=== PATIENT | female | born 1955 | race Caucasian/White ===

== ENCOUNTER 2019-10-23 21:41 | Emergency (ER) | payer BC ==
[2019-10-23 21:58] VITALS: BP 139/70; PULSE 71
--- NOTE | 2019-10-23 22:39 | EDM.PDOC ---
ED HPI GENERAL MEDICAL PROBLEM - General Chief Complaint: Abdominal Pain Stated Complaint: STOMACH PAIN Time Seen by Provider: 10/23/19 22:15 Source of Information: Reports: Patient, RN, RN Notes Reviewed History Limitations: Reports: No Limitations - History of Present Illness INITIAL COMMENTS - FREE TEXT/NARRATIVE: Franca is a 63 yo that presents to the ED with two episodes of upper abd pain this evening. She states the past two days she has had intermittent burning across the upper abd that felt like she was really hungry and had not eaten. This evening, Franca felt fine, ate a pesto chicken and garbanzo pond salad supper with her around 17:30. At 20:00, Franca got 8/10 severe upper abd pain that she described as sharp. she tried to lay down without relief. Tried 2 tabs of Tums and then took a shower and the pain ended ended up going away after about 45 minutes. After 10 minutes, the pain came back more severe 10/10 and lasted another 10 minutes. She arrives at the ED pain free. Abd history of an appy and R ovary removed due to a significant cyst. Negative colonoscopy 10 years ago per the pt and a negative cologuard earlier this year. denies any history of acid reflux, ulcers, or diverticulosis. Franca says a previous abd CT scan did show gallstones. 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 (see below) (2 tums) - Related Data Allergies Allergy/AdvReac Type Severity Reaction Status Date / Time erythromycin base Allergy Rash Verified 10/23/19 22:19 [Erythromycin Base] codeine AdvReac Nausea and Verified 10/23/19 22:19 Vomiting Home Meds: Home Meds Benazepril [Lotensin] 20 mg PO DAILY 03/13/13 [History] Meclizine [Antivert] 12.5 mg PO TID PRN 03/13/13 [History] [place]-3 Fatty Acids/Fish Oil [[place]-3 Fish Oil 1,000 mg Sfgl] 1 tab PO DAILY [History] Gabapentin [Neurontin] 600 mg PO DAILY 03/15/17 [History] Levothyroxine [Synthroid] 50 mcg PO DAILY 05/08/19 [History] Past Medical History Cardiovascular History: Reports: Hypertension Respiratory History: Reports: None Gastrointestinal History: Reports: None Genitourinary History: Reports: None 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 right knee pain Neurological History: Reports: None Psychiatric History: Reports: None Endocrine/Metabolic History: Reports: None Hematologic History: Reports: None Immunologic History: Reports: None Oncologic (Cancer) History: Reports: None Dermatologic History: Reports: None - Infectious Disease History Infectious Disease History: Reports: Chicken Pox - Past Surgical History Head Surgeries/Procedures: Reports: None Cardiovascular Surgical History: Reports: None GI Surgical History: Reports: Appendectomy Musculoskeletal Surgical History: Reports: None Social & Family History - Tobacco Use Smoking Status *Q: Never Smoker - Caffeine Use Caffeine Use: Reports: Coffee - Alcohol Use Days Per Week of Alcohol Use: 7 Number of Drinks Per Day: 1 Total Drinks Per Week: 7 - Recreational Drug Use Recreational Drug Use: No ED ROS GENERAL - Review of Systems Review Of Systems: See Below Constitutional: Reports: No Symptoms HEENT: Reports: No Symptoms Respiratory: Reports: No Symptoms Cardiovascular: Reports: No Symptoms Endocrine: Reports: No Symptoms GI/Abdominal: Reports: Abdominal Pain : Reports: No Symptoms Musculoskeletal: Reports: No Symptoms Skin: Reports: No Symptoms Neurological: Reports: No Symptoms Psychiatric: Reports: No Symptoms Hematologic/Lymphatic: Reports: No Symptoms Immunologic: Reports: No Symptoms ED EXAM, GI/ABD - Physical Exam Exam: See Below Exam Limited By: No Limitations General Appearance: Alert, WD/WN, No Apparent Distress Ears: Normal External Exam Head: Atraumatic, Normocephalic Respiratory/Chest: No Respiratory Distress, Lungs Clear, Normal Breath Sounds, Chest Non-Tender Cardiovascular: Regular Rate, Rhythm, No Edema, No Murmur GI/Abdominal Exam: Normal Bowel Sounds, Soft, Non-Tender, No Organomegaly, No Distention, No Abnormal Bruit (Female) Exam: Deferred Rectal (Female) Exam: Deferred Back Exam: Normal Inspection Extremities: Normal Inspection, No Pedal Edema, Normal Capillary Refill Neurological: Alert, Oriented, Normal Cognition Psychiatric: Normal Affect, Normal Mood Skin Exam: Warm, Dry Course - Vital Signs Last Recorded V/S: Last Vital Signs Temp 98.7 F 10/23/19 22:20 Pulse 71 10/23/19 22:20 Resp 18 10/23/19 22:20 BP 139/70 10/23/19 22:20 Pulse Ox 99 10/23/19 22:20 - Orders/Labs/Meds Orders: Active Orders 24 hr Category Date Time Status EKG Documentation Completion [RC] ASDIRECTED Care 10/23/19 22:32 Active Abdomen Series w Chest 1V [CR] Stat Exams 10/23/19 22:29 Taken EKG 12 Lead [EK] Routine Ther 10/23/19 22:31 Ordered Labs: Laboratory Tests 10/23/19 10/23/19 10/23/19 Range/Units 22:28 22:45 22:45 WBC 7.1 (4.5-11.0) K/uL RBC 3.72 (3.30-5.50) M/uL Hgb 11.3 L (12.0-15.0) g/dL Hct 35.8 L (36.0-48.0) % MCV 96 (80-98) fL MCH 30 (27-31) pg MCHC 32 (32-36) % Plt Count 256 (150-400) K/uL Neut % (Auto) 62 (36-66) % Lymph % (Auto) 28 (24-44) % Ashley % (Auto) 8 H (2-6) % Eos % (Auto) 2 (2-4) % Baso % (Auto) 0 (0-1) % Sodium 143 (140-148) mmol/L Potassium 4.1 (3.6-5.2) mmol/L Chloride 106 (100-108) mmol/L Carbon Dioxide 30 (21-32) mmol/L Anion Gap 6.6 (5.0-14.0) mmol/L BUN 11 (7-18) mg/dL Creatinine 0.7 (0.6-1.0) mg/dL Est Cr Clr Drug Dosing 79.99 mL/min Estimated GFR (MDRD) > 60 (>60) Glucose 120 H (74-106) mg/dL Calcium 9.4 (8.5-10.1) mg/dL Total Bilirubin 0.2 (0.2-1.0) mg/dL AST 51 H (15-37) U/L ALT 48 (12-78) U/L Alkaline Phosphatase 71 (46-116) U/L Total Protein 7.1 (6.4-8.2) g/dL Albumin 4.0 (3.4-5.0) g/dL Globulin 3.1 (2.3-3.5) g/dL Albumin/Globulin Ratio 1.3 (1.2-2.2) Lipase 172 (73-393) U/L Urine Color Yellow (YELLOW) Urine Appearance Clear (CLEAR) Urine pH 7.0 (5.0-8.0) Ur Specific [place] >= 1.030 (1.008-1.030) Urine Protein Negative (NEGATIVE) mg/dL Urine Glucose (UA) Negative (NEGATIVE) mg/dL Urine Ketones Negative (NEGATIVE) mg/dL Urine Occult Blood Negative (NEGATIVE) Urine Nitrite Negative (NEGATIVE) Urine Bilirubin Negative (NEGATIVE) Urine Urobilinogen 0.2 (0.2-1.0) EU/dL Ur Leukocyte Esterase Trace H (NEGATIVE) Urine RBC 0-5 (0-5) Urine WBC 0-5 (0-5) Ur Epithelial Cells Few Amorphous Sediment Few Urine Bacteria Not seen Urine Mucus Not seen - Re-Assessments/Exams Free Text/Narrative Re-Assessment/Exam: 10/23/19 23:08 EKG shows NSR and is reassuring. UA negative. Chest xray is WNL and abdominal flat/upright show no free air under the diaphragm and a moderate amount of stool. Official radiology read pending. Departure - Departure Time of Disposition: 23:40 Disposition: Home, Self-Care 01 Condition: Good Clinical Impression: Gallbladder attack - Discharge Information *PRESCRIPTION DRUG MONITORING PROGRAM REVIEWED*: No *COPY OF PRESCRIPTION DRUG MONITORING REPORT IN PATIENT ALEYDA: No Referrals: Benedicto Curran MD [Primary Care Provider] - Forms: ED Department Discharge Care Plan Goals: Suspect that you have experienced a gallbladder attack/ spasm. An outpatient order has been placed for you to return for an ultrasound of your gallbladder on Sunday. Radiology should call you tomorrow to set that up. In the meantime, eat a bland, low-fat diet. If that pain returns and remains severe, return to the ED for further evaluation. Call or return with worsening or any other conditions. Follow-up with Dr. Curran on Sunday. [facility] call you to set that up. Sepsis Event Note - Evaluation Sepsis Screening Result: No Definite Risk - Focused Exam Vital Signs: Vital Signs Temp Pulse Resp BP Pulse Ox 10/23/19 22:20 98.7 F 71 18 139/70 99 10/23/19 21:57 98.7 F 71 18 139/70 99 Date Exam was Performed: 10/23/19 Time Exam was Performed: 23:38 - My Orders Last 24 Hours: My Active Orders 10/23/19 22:29 Abdomen Series w Chest 1V [CR] Stat 10/23/19 22:31 EKG 12 Lead [EK] Routine 10/23/19 22:32 EKG Documentation Completion [RC] ASDIRECTED - Assessment/Plan Last 24 Hours: My Active Orders 10/23/19 22:29 Abdomen Series w Chest 1V [CR] Stat 10/23/19 22:31 EKG 12 Lead [EK] Routine 10/23/19 22:32 EKG Documentation Completion [RC] ASDIRECTED Plan: labs are reassuring. AST slightly elevated at 51. suspect a gallbladder spasm/ colic. Plan to discharge home with the plan to come back Sunday for a gallbladder ultrasound and then follow up with Dr. Curran on Sunday.
--- NOTE | 2019-10-24 09:08 | CR ---
Abdomen Series w Chest 1V CLINICAL HISTORY: Abdominal pain FINDINGS: Lungs are clear. No free air is identified. Small intestinal gas pattern is nonacute. 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 There is a transitional lumbosacral segment IMPRESSION: Nonacute intestinal gas pattern
== END 2019-10-23 23:54 | disposition home or self-care (01) ==
LOC: JP.ED 21:41
DX: K82.9 Disease of gallbladder, unspecified (principal); I10 Essential (primary) hypertension; Z79.899 Other long term (current) drug therapy; Z88.1 Allergy status to other antibiotic agents; Z88.5 Allergy status to narcotic agent
CPT/HCPCS: 36415; 74022; 74022-26; 80053; 81001; 83690; 85025; 93005; 99284-25

== ENCOUNTER 2019-11-04 05:30 | Day surgery (SDC) | payer BC ==
[2019-11-04] MEDS: Dextrose 5%-Lactated Ringers 1,000 ML IV SCH ×3 (05:54→22:10)
[2019-11-04] MEDS ORDERED: Celecoxib 200 MG Cap PO ONE (06:00)
[2019-11-04] MEDS ORDERED: Acetaminophen 500 MG Tab PO ONE (06:00)
[2019-11-04] MEDS ORDERED: Scopolamine 1.5 MG Transdermal Patch TOP SCH (06:00)
[2019-11-04] MEDS ORDERED: Bupivacaine 0.5%/EPINEPHrine 1:200,000 50 ML MDV ONE (06:32)
[2019-11-04] MEDS ORDERED: Meropenem 500 MG SDV ONE (06:32)
[2019-11-04] MEDS ORDERED: fentaNYL 250 MCG/5 ML SDV ONE (07:08)
[2019-11-04] MEDS ORDERED: Succinylcholine 200 MG/10 ML MDV ONE (07:09)
[2019-11-04] MEDS ORDERED: Neostigmine Methylsulfate 1 MG/ML 5 ML Syringe ONE (07:09)
[2019-11-04] MEDS ORDERED: Ondansetron 4 MG/2 ML SDV ONE (07:09)
[2019-11-04] MEDS ORDERED: Dexamethasone 4 MG/ML SDV ONE (07:09)
[2019-11-04] MEDS ORDERED: Glycopyrrolate 0.2 MG/ML 5 ML MDV ONE (07:09)
[2019-11-04] MEDS ORDERED: Rocuronium 50 MG/5 ML Vial ONE (07:09)
[2019-11-04] MEDS ORDERED: Propofol 200 MG/20 ML SDV ONE (07:09)
[2019-11-04] MEDS: cefOXitin 2 GM in Sodium Chloride 0.9% 50 ML IV ONE ×2 (07:13→09:09)
[2019-11-04] MEDS ORDERED: Ropivacaine 44 ML, dexAMETHasone 8 MG, EPINEPHrine 0.4 MG, Sodium Chloride 0.9% 33.6 ML NERVRT SCH ×4 (07:30)
[2019-11-04] MEDS ORDERED: Ketamine 500 MG/5 ML MDV IV SCH (07:30)
[2019-11-04] MEDS ORDERED: Sodium Chloride 0.9% 10 ML ONE (07:43)
[2019-11-04] MEDS ORDERED: ePHEDrine 50 MG/ML SDV ONE (07:43)
[2019-11-04] MEDS ORDERED: Acetaminophen/HYDROcodone 325-5 MG Tab PO PRN (09:12)
[2019-11-04] MEDS ORDERED: Ondansetron 4 MG/2 ML SDV IVPUSH PRN (09:12)
[2019-11-04] MEDS ORDERED: HYDROmorphone 0.5 MG/0.5 ML Syringe IVPUSH PRN (09:12)
[2019-11-04] MEDS ORDERED: HYDROmorphone 1 MG/ML Syringe IV PRN (09:12)
[2019-11-04] MEDS ORDERED: Loratadine 10 MG Tab PO PRN (09:16)
[2019-11-04] MEDS ORDERED: Pantoprazole 40 MG Vial IVPUSH SCH (11:00)
[2019-11-04] MEDS: predniSONE 20 MG Tab PO SCH (11:45)
[2019-11-04] MEDS: Levothyroxine 50 MCG Tab PO SCH (11:46)
[2019-11-04] MEDS: Benazepril 10 MG Tab PO SCH (12:58)
[2019-11-04] MEDS: cefOXitin 2 GM in Sodium Chloride 0.9% 50 ML IV SCH ×2 (14:35→19:51)
[2019-11-04] MEDS ORDERED: Gabapentin 300 MG Cap PO SCH (21:00)
[2019-11-04] MEDS ORDERED: HYDROmorphone 2 MG Tab PO PRN (22:20)
[2019-11-05] MEDS: cefOXitin 2 GM in Sodium Chloride 0.9% 50 ML IV SCH ×2 (01:43→07:30)
[2019-11-05] MEDS: Levothyroxine 50 MCG Tab PO SCH (07:30)
[2019-11-05] MEDS: predniSONE 20 MG Tab PO SCH (08:00)
[2019-11-05] MEDS: Benazepril 10 MG Tab PO SCH (08:52)
[2019-11-05 11:07] VITALS: BP 107/48; PULSE 52
--- NOTE | 2019-11-05 17:13 | OR ---
DATE OF PROCEDURE: 11/04/2019 SURGEON: Basilio Wallace MD PREOPERATIVE DIAGNOSES: Chronic cholecystitis and cholelithiasis. POSTOPERATIVE DIAGNOSES: 1. Chronic cholecystitis and cholelithiasis. 2. Enlarged radha hepatis lymph node. 3. Probable lipoma over peritoneal surface of gallbladder (1 cm). 4. Incarcerated umbilical hernia. OPERATIVE PROCEDURES: Diagnostic laparoscopy with, 1. Cholecystectomy (27875). 2. Repair of incarcerated umbilical hernia (68620). 3. Biopsy of radha hepatis lymph node (90097). 4. Excision of probable lipoma on peritoneal surface adjacent to gallbladder (00775). ANESTHESIA: General. AUTOMOTIVE PRODUCT ENGINEER: Suzy Montes PA-C INDICATION FOR PROCEDURE: This 64-year-old is presenting with some ongoing right upper quadrant pain. Workup included ultrasound showing gallbladder thickening and gallstones. Plan is to proceed with a laparoscopic cholecystectomy. Potential risks of the procedure including bleeding, infection, injury to underlying viscera, problems with stones migrating into the common bile duct requiring additional procedures for correction were all reviewed, and the patient wishes to proceed. DETAILS OF PROCEDURE: The patient was taken to the operating room and placed in a supine position. After general endotracheal anesthesia was induced, initially, the patient was noted to have a fairly large umbilical hernia. A transverse subumbilical incision was made and carried down through the skin and subcutaneous tissue, and the hernia contents were then excised. This included some incarcerated preperitoneal fat as well as a tongue of omentum. This was excised along with the hernia sac. Then, a 12-mm trocar was easily placed into the peritoneal cavity, which was then inflated to 15 mmHg with CO2. A 12-mm epigastric trocar followed by a 5-mm right subcostal trocar were both then placed, and the upper abdomen examined. As expected, the patient was noted to have a thick-walled and somewhat edematous- appearing gallbladder. Of note then, the patient was noted to have a lipomatous-type region on the edge of the gallbladder neck. This measured around 1 cm and for pathologic confirmation, it was excised and sent as a separate specimen. The patient also had an enlarged radha hepatis lymph node, which would probably be reactive, but to confirm its benign nature, this was excised as well, again, using Harmonic scalpel. The gallbladder was then retracted anteriorly and laterally, and dissection began on the gallbladder neck and continued around the gallbladder neck and cystic duct junction. Once that area along with the adjacent cystic artery were both clearly identified, in each case 3 clips were placed proximally and once distally, and the gallbladder neck and cystic duct junction divided. The gallbladder was then dissected off the gallbladder bed using Harmonic scalpel and delivered through the upper midline port. The patient was noted to have 2 stones, one was roughly a 1-cm stone which was lodged in the gallbladder neck and a second larger free-floating stone was somewhat larger. The latter was given to the patient postoperatively. At this point, no bleeding or bile leaks were seen and a drain was felt not to be necessary. Skin was then brought up to the epigastric site and a series of 4 sutures were then placed closing the umbilical hernia with a transverse orientation. Once all these sutures were in place, the remaining trocars were removed and peritoneal cavity deflated. The fascial sutures were then tied. The epigastric trocar site also had a single fascial suture of 0 Vicryl placed as well. The subdermal tissue at the umbilical site was tacked down with some 5-0 Vicryl stitch and each incision closed with 5-0 Vicryl skin stitch. Dressing was applied. The patient was taken to the recovery room in satisfactory condition. There were no evident complications. Physician assistant boys track coach, Suzy Montes, played an essential role assisting in this case; helping to position the patient, retract structures as needed, as well as suturing and cutting sutures when indicated. Her presence improved patient safety and decreased the operative time. Basilio Wallace MD /[id number]
--- NOTE | 2019-11-06 07:21 | DISCH ---
ADMISSION DIAGNOSIS: Chronic cholecystitis. DISCHARGE DIAGNOSES: Diagnostic laparoscopy with: 1. Cholecystectomy. 2. Repair of incarcerated umbilical hernia. 3. Biopsy of the radha hepatic lymph node. 4. Excision of probable lipoma on the peritoneal surface of the gallbladder. POSTOPERATIVE DIAGNOSES: 1. Chronic cholecystitis and cholelithiasis. 2. Enlarged radha hepatic lymph node. 3. Probable lipoma on the peritoneal surface of the gallbladder, 1 cm. 4. Incarcerated umbilical hernia. Date of surgery: 11/04/2019. Surgeon: Basilio Wallace MD. HISTORY: Franca Covarrubias is a 64-year-old female with chronic cholecystitis. After preoperative evaluation and discussion of possible risks and possible complications she wished to proceed with surgical procedure. HOSPITAL COURSE: Franac had her surgery on 11/04/2019. She had no operative complications. On postoperative day #1, her pain was well controlled. Oral intake adequate. Vital signs stable. Activity good. She was able to be discharged to home. PHYSICAL EXAMINATION: GENERAL: Franca is a 64-year-old female. VITAL SIGNS: Height is 5 feet 7 inches, weight is 192 pounds, BMI is 30. TPR at 0500; 97.1, 64, 18. Blood pressure 102/45. HEENT: Negative. NECK: Supple. HEART: Regular rate and rhythm. LUNGS: Clear. ABDOMEN: Dressings dry and intact. Abdominal binder is on. EXTREMITIES: Without peripheral edema. DISPOSITION: Discharged home. CONDITION: Stable and improving. FOLLOWUP APPOINTMENT: With Basilio Wallcae MD, at [facility] on 11/12/2019 at 8:30 a.m. DISCHARGE MEDICATIONS: New prescriptions: 1. Dilaudid 2 mg every 4 hours p.r.n. pain, #30. 2. Zofran ODT 4 mg every 6 hours p.r.n. nausea, #30. 3. Remove scopolamine patch on Sunday morning 11/08/2019. Resume home medications: 1. Lotensin 20 mg oral daily. 2. [place] 180 mg oral daily. 3. Neurontin 600 mg at bedtime. 4. Levothyroxine 50 mcg oral daily. 5. Meclizine 12.5 mg oral 3 times a day p.r.n. nausea. 6. [place]-3 one tablet oral daily. 7. Prednisone 40 mg, take for 5 days, and she has 2 days left, may finish if she feels like she still needs it. DIET: Usual diet as tolerated. Drink 8 to 10 glasses of water a day. ACTIVITY: No lifting over 10 pounds for 4 weeks. Other activity: Walk 6 times daily inside your home and driving do not drive for 1 week and while on pain medication. Shower/Bathing: May shower. No tub bathing or swimming until incisions are completely dry and healed, about 6 weeks. DISCHARGE INSTRUCTIONS: Notify provider if any fever, increased pain, swelling, redness, drainage, nausea, or vomiting. Keep site clean and dry. Wear abdominal binder for 2 weeks and then as tolerated. Use incentive spirometer 10 times every hour while awake for 1 week.
== END 2019-11-05 11:11 | disposition home or self-care (01) ==
LOC: JP.SDS 05:30 → JP.MS 08:20 → JP.SDS 11-05 11:11
PROVIDERS: ATTEND Surgery
DX: K80.10 Calculus of gallbladder with chronic cholecystitis without obstruction (principal); K42.0 Umbilical hernia with obstruction, without gangrene; D17.5 Benign lipomatous neoplasm of intra-abdominal organs; R59.0 Localized enlarged lymph nodes; I10 Essential (primary) hypertension; E66.9 Obesity, unspecified; Z68.30 Body mass index [BMI] 30.0-30.9, adult; Z88.5 Allergy status to narcotic agent; Z88.1 Allergy status to other antibiotic agents; Z79.899 Other long term (current) drug therapy
CPT/HCPCS: 36415; 47562; 49321; 49329; 49653; 82247; 84075; 85027; 88302; 88304; 88305; A9270; C9113; J0171; J0330; J0694; J1100; J1170; J2405; J2704; J2710; J2795; J3010; J3490; J7050; J7121; J7512; J2185

== ENCOUNTER 2020-11-02 11:51 | Emergency (ER) | payer BC, MEDICARE ==
[2020-11-02 12:40] VITALS: BP 136/52; PULSE 72
--- NOTE | 2020-11-02 14:10 | EDM.PDOC ---
ED HPI GENERAL MEDICAL PROBLEM - General Chief Complaint: Genitourinary Problem Stated Complaint: TROUBLE URINATING IN THE MORNING Time Seen by Provider: 11/02/20 13:42 Source of Information: Reports: Patient, RN Notes Reviewed History Limitations: Reports: No Limitations - History of Present Illness INITIAL COMMENTS - FREE TEXT/NARRATIVE: 65-year-old female presents emergency department day complaint of urinary retention, she states been going on for about a month mainly in the morning she has difficulty urinating initially started out 15 minutes now has progressed to several hours before she can believe herself in the morning. Presented to the emergency department for further evaluation she has seen her primary consultation with urology set up but that is a month out. Denies any other symptoms - Related Data Allergies Allergy/AdvReac Type Severity Reaction Status Date / Time erythromycin base Allergy Rash Verified 11/02/20 12:34 [Erythromycin Base] codeine AdvReac Nausea and Verified 11/02/20 12:34 Vomiting Home Meds: Home Meds Benazepril [Lotensin] 20 mg PO DAILY 03/13/13 [History] Meclizine [Antivert] 12.5 mg PO TID PRN 03/13/13 [History] Bantam-3 Fatty Acids/Fish Oil [Bantam-3 Fish Oil 1,000 mg Sfgl] 1 tab PO BEDTIME 03/14/17 [History] Gabapentin [Neurontin] 600 mg PO BEDTIME 03/15/17 [History] Levothyroxine [Synthroid] 50 mcg PO DAILY 05/08/19 [History] Fexofenadine [Eden] 180 mg PO DAILY PRN 10/31/19 [History] Triamcinolone Acetonide [Triamcinolone Acetonide 0.1% Oint] 1 dose TOP BID 10/31/19 [History] HYDROmorphone [Dilaudid] 2 mg PO Q4H PRN #30 tablet 11/05/19 [Rx] Past Medical History Cardiovascular History: Reports: Hypertension ACCOUNT SUPPORT ASSOCIATE History: Reports: Other (See Below) Other ACCOUNT SUPPORT ASSOCIATE History: ovary removed Musculoskeletal History: Reports: Back Pain, Chronic, Other (See Below) Other Musculoskeletal History: R elbow pain. right knee pain bunionectomy - Infectious Disease History Infectious Disease History: Reports: Chicken Pox - Past Surgical History Head Surgeries/Procedures: Reports: None Cardiovascular Surgical History: Reports: None GI Surgical History: Reports: Appendectomy, Cholecystectomy, Colonoscopy Musculoskeletal Surgical History: Reports: None Other Musculoskeletal Surgeries/Procedures:: knee surgery and bunion removed Social & Family History - Family History Family Medical History: No Pertinent Family History Cardiac: Reports: CAD - Tobacco Use Tobacco Use Status *Q: Never Tobacco User - Caffeine Use Caffeine Use: Reports: Coffee ED ROS GENERAL - Review of Systems Review Of Systems: See Below Constitutional: Reports: No Symptoms Respiratory: Reports: No Symptoms Cardiovascular: Reports: No Symptoms GI/Abdominal: Reports: No Symptoms : Reports: Urinary Retention ED EXAM, RENAL/ - Physical Exam Exam: See Below Exam Limited By: No Limitations General Appearance: Alert, WD/WN, No Apparent Distress Respiratory/Chest: No Respiratory Distress GI/Abdominal: Soft, Non-Tender Course - Vital Signs Last Recorded V/S: Last Vital Signs Temp 97.8 F 11/02/20 12:39 Pulse 72 11/02/20 12:39 Resp 14 11/02/20 12:39 BP 136/52 L 11/02/20 12:39 Pulse Ox 99 11/02/20 12:39 - Orders/Labs/Meds Orders: Active Orders 24 hr Category Date Time Status Peripheral IV Care [RC] . DIRECTED Care 11/02/20 16:04 Active Abdomen Pelvis w Cont [CT] Stat Exams 11/02/20 16:04 Ordered CANCER ANTIGEN (CA) 125 Stat Lab 11/02/20 16:19 Received CEA Stat Lab 11/02/20 16:19 Received Iopamidol [Isovue-300 (61%)] Med 11/02/20 16:17 Active 100 ml IV . DIRECTED PRN Sodium Chloride 0.9% [Normal Saline] 1,000 ml Med 11/02/20 16:15 Active IV ASDIRECTED Sodium Chloride 0.9% [Normal Saline] 100 ml Med 11/02/20 16:30 Active IV ASDIRECTED Sodium Chloride 0.9% [Saline Flush] Med 11/02/20 16:04 Active 10 ml FLUSH ASDIRECTED PRN Peripheral IV Insertion Adult [OM.PC] Urgent Oth 11/02/20 16:03 Ordered Medication Orders Sodium Chloride (Normal Saline) 1,000 mls @ 500 mls/hr IV ASDIRECTED WERO Sodium Chloride (Normal Saline) 100 mls @ 3 mls/sec IV ASDIRECTED WERO Last Admin: 11/02/20 17:51 Dose: 3 mls/sec Documented by: NELIDAALY Iopamidol (Iopamidol 612 Mg/Ml 100 Ml Bottle) 100 ml IV . DIRECTED PRN PRN Reason: RADIOLOGY EXAM Stop: 11/03/20 16:18 Last Admin: 11/02/20 17:52 Dose: 100 ml Documented by: IRON Sodium Chloride (Sodium Chloride 0.9% 10 Ml Syringe) 10 ml FLUSH ASDIRECTED PRN PRN Reason: Keep Vein Open Labs: Laboratory Tests 11/02/20 11/02/20 Range/Units 12:50 17:02 Sodium 145 (140-148) mmol/L Potassium 3.6 (3.6-5.2) mmol/L Chloride 107 (100-108) mmol/L Carbon Dioxide 27 (21-32) mmol/L Anion Gap 10.9 (5.0-14.0) mmol/L BUN 11 (7-18) mg/dL Creatinine 0.7 (0.6-1.0) mg/dL Est Cr Clr Drug Dosing 75.01 mL/min Estimated GFR (MDRD) > 60 (>60) Glucose 95 (74-106) mg/dL Calcium 8.9 (8.5-10.1) mg/dL Urine Color Yellow (YELLOW) Urine Appearance Slightly cloudy A (CLEAR) Urine pH 5.5 (5.0-8.0) Ur Specific [place] 1.025 (1.008-1.030) Urine Protein Negative (NEGATIVE) mg/dL Urine Glucose (UA) Negative (NEGATIVE) mg/dL Urine Ketones Negative (NEGATIVE) mg/dL Urine Occult Blood Negative (NEGATIVE) Urine Nitrite Negative (NEGATIVE) Urine Bilirubin Negative (NEGATIVE) Urine Urobilinogen 0.2 (0.2-1.0) EU/dL Ur Leukocyte Esterase Negative (NEGATIVE) Urine RBC Not seen (0-5) Urine WBC 0-5 (0-5) Ur Epithelial Cells Rare Amorphous Sediment Few Urine Bacteria Rare Urine Mucus Moderate Meds: Medications Generic Name Dose Route Start Last Admin Trade Name Freq PRN Reason Stop Dose Admin Sodium Chloride 1,000 mls @ 500 mls/hr 11/02/20 16:15 Normal Saline IV ASDIRECTED WERO Sodium Chloride 100 mls @ 3 mls/sec 11/02/20 16:30 11/02/20 17:51 Normal Saline IV 3 mls/sec ASDIRECTED WERO Administration Iopamidol 100 ml 11/02/20 16:17 11/02/20 17:52 Iopamidol 612 Mg/Ml 100 Ml Bottle IV 11/03/20 16:18 100 ml . DIRECTED PRN Administration RADIOLOGY EXAM Sodium Chloride 10 ml 11/02/20 16:04 Sodium Chloride 0.9% 10 Ml Syringe FLUSH ASDIRECTED PRN Keep Vein Open Discontinued Medications Generic Name Dose Route Start Last Admin Trade Name Antonia PRN Reason Stop Dose Admin Sodium Chloride 10 ml 11/02/20 16:17 Sodium Chloride 0.9% 10 Ml Sdv FLUSH 11/02/20 16:18 ONETIME ONE - Re-Assessments/Exams Free Text/Narrative Re-Assessment/Exam: 11/02/20 16:04 Called and discussed the case with Dr. Gary ACCOUNT SUPPORT ASSOCIATE at [facility] recommended surgical resection he did take her name he will put her on the schedule with either himself or one of his partners in the next couple days for an evaluation in clinic and then potential surgical intervention. He did ask for CT scan of the abdomen for further characterization as well as CEA and CA-125 labs to be drawn Departure - Departure Time of Disposition: 17:54 Disposition: Home, Self-Care 01 Condition: Fair Clinical Impression: Ovarian mass, left - Discharge Information Referrals: Benedicto Curran MD [Primary Care Provider] - Forms: ED Department Discharge Additional Instructions: Please call to the [facility] in [place] for an appointment time with ACCOUNT SUPPORT ASSOCIATE if you do not hear from them by 10 AM in the morning Sepsis Event Note (ED) - Evaluation Sepsis Screening Result: No Definite Risk - Focused Exam Vital Signs: Vital Signs Temp Pulse Resp BP Pulse Ox 11/02/20 12:39 97.8 F 72 14 136/52 L 99 - My Orders Last 24 Hours: My Active Orders 11/02/20 16:03 Peripheral IV Insertion Adult [OM.PC] Urgent 11/02/20 16:04 Peripheral IV Care [RC] . DIRECTED Abdomen Pelvis w Cont [CT] Stat Sodium Chloride 0.9% [Saline Flush] 10 ml FLUSH ASDIRECTED PRN 11/02/20 16:15 Sodium Chloride 0.9% [Normal Saline] 1,000 ml IV ASDIRECTED 11/02/20 16:17 Iopamidol [Isovue-300 (61%)] 100 ml IV . DIRECTED PRN 11/02/20 16:19 CANCER ANTIGEN (CA) 125 Stat CEA Stat 11/02/20 16:30 Sodium Chloride 0.9% [Normal Saline] 100 ml IV ASDIRECTED - Assessment/Plan Last 24 Hours: My Active Orders 11/02/20 16:03 Peripheral IV Insertion Adult [OM.PC] Urgent 11/02/20 16:04 Peripheral IV Care [RC] . DIRECTED Abdomen Pelvis w Cont [CT] Stat Sodium Chloride 0.9% [Saline Flush] 10 ml FLUSH ASDIRECTED PRN 11/02/20 16:15 Sodium Chloride 0.9% [Normal Saline] 1,000 ml IV ASDIRECTED 11/02/20 16:17 Iopamidol [Isovue-300 (61%)] 100 ml IV . DIRECTED PRN 11/02/20 16:19 CANCER ANTIGEN (CA) 125 Stat CEA Stat 11/02/20 16:30 Sodium Chloride 0.9% [Normal Saline] 100 ml IV ASDIRECTED Plan: Assessment Acuity = acute Site and laterality = left ovarian mass Etiology = unknown Manifestations = urinary retention Location of injury = Home Lab values = ultrasound describes mass above CT scan pending Plan [facility] clinic will contact her tomorrow for an appointment time to follow- up with ACCOUNT SUPPORT ASSOCIATE This note was dictated using [employer] voice recognition software please call with any questions on syntax or grammar.
--- NOTE | 2020-11-02 15:18 | US ---
Pelvis Non OB Ltd CLINICAL HISTORY: Difficulty urinating FINDINGS: Real-time transabdominal images obtained through the pelvis. The uterus measures 5.5 x 4.6 x 2.2 cm. The region stripe is not well seen. Right ovary is been removed. There is a large septated cystic mass involving the left adnexal region. This measures 13.8 x 8.6 x 6.8 cm. There is no significant flow within the septations. This impresses upon the bladder. No free fluid is seen. IMPRESSION: Large septated cystic mass in the left ovary is felt to represent a cystic neoplasm. This impresses upon the urinary bladder which may cause patient's symptomatology Right ovary has been removed
[2020-11-02] MEDS ORDERED: Sodium Chloride 0.9% 10 ML Syringe FLUSH PRN (16:04)
[2020-11-02] MEDS ORDERED: Sodium Chloride 0.9% 1,000 ML IV SCH (16:15)
[2020-11-02] MEDS ORDERED: Iopamidol 612 MG/ML 100 ML Bottle IV PRN (16:17)
[2020-11-02] MEDS ORDERED: Sodium Chloride 0.9% 10 ML SDV FLUSH ONE (16:17)
[2020-11-02] MEDS ORDERED: Sodium Chloride 0.9% 100 ML IV SCH (16:30)
--- NOTE | 2020-11-02 18:53 | CRLCT ---
For Patients: As a result of the Century Cures Act, medical imaging exams and procedure reports are released immediately into your electronic medical record. You may view this report before your referring provider. If you have questions, please contact your health care provider. INDICATION: Left ovarian mass. TECHNIQUE: CT of the abdomen and pelvis with 100 cc Isovue 300 IV contrast. Coronal and sagittal reconstructions. COMPARISON: None available. FINDINGS: The liver, spleen, and adrenal glands are negative. Cholecystectomy. There are two small cystic lesions in the pancreatic head measuring up to 7 mm in size (series 2 images 41 and 44). These may represent side branch intraductal papillary mucinous neoplasms. No dilation of the main pancreatic duct. Symmetric enhancement of the kidneys. 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 No hydronephrosis. No obstructing urinary calculi. The bladder is normal in appearance. There are three small enhancing solid masses within the uterine body and fundus which most likely represent fibroids. The right ovary is not definitely identified. There is an 11.9 x 8.2 x 8.0 cm multiloculated cystic lesion in the central pelvis arising from the left ovary (series 2, image 101). 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 No bowel dilation. The appendix is not identified. No intraperitoneal free air or fluid. No lymphadenopathy. Right convex lumbar curve. Degenerative changes of the spine. Minimal bibasilar atelectasis. IMPRESSION: 1. 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 Recommend gynecologic/surgical consult. 2. No evidence of metastatic disease in the abdomen or pelvis. 3. Probable uterine fibroids. 4. 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 These measure up to 7 mm in size. These could be further evaluated with nonemergent MRI/MRCP. Please note that all CT scans at this facility use dose modulation, iterative reconstruction, and/or weight-based dosing when appropriate to reduce radiation dose to as low as reasonably achievable. Dictated by Suzy Acevedo MD @ 11/02/2020 6:52:[address] Suzy Acevedo @ Nov 02 2020 6:52PM
== END 2020-11-02 18:36 | disposition home or self-care (01) ==
LOC: JP.ED 11:51
DX: N83.9 Noninflammatory disorder of ovary, fallopian tube and broad ligament, unspecified (principal); I10 Essential (primary) hypertension; Z88.5 Allergy status to narcotic agent; Z88.1 Allergy status to other antibiotic agents; Z79.899 Other long term (current) drug therapy
CPT/HCPCS: 36415; 74177; 76857; 80048; 81001; 82378; 86304; 99284; Q9967